=== PATIENT | female | born 1975 | race Caucasian/White ===

== ENCOUNTER 2022-05-30 10:42 | Emergency (ER) | payer OTHER ==
[~2022-05-30] VITALS: Ht 160 cm; Wt 65.9 kg
[2022-05-30] MEDS ORDERED: ACETAMINOPHEN 500 MG TABLET PO ONE (11:00)
[2022-05-30 13:32] VITALS: BP 115/62
== END 2022-05-30 13:42 | disposition home or self-care (01) ==
LOC: EMS 10:44
DX: S76.112A Strain of left quadriceps muscle, fascia and tendon, initial encounter (principal); M54.2 Cervicalgia; R51.9 Headache, unspecified; Z90.49 Acquired absence of other specified parts of digestive tract; W01.0XXA Fall on same level from slipping, tripping and stumbling without subsequent striking against object, initial encounter; Y93.89 Activity, other specified; Y92.512 Supermarket, store or market as the place of occurrence of the external cause; Y99.8 Other external cause status
CPT/HCPCS: 70450; 72125; 99284